=== PATIENT | female | born 1980 | race Hispanic/Latino ===

== ENCOUNTER 2019-02-25 09:24 | Emergency (ER) | payer SELFPAY ==
[~2019-02-25] VITALS: Ht 157.5 cm; Wt 63.6 kg
[2019-02-25] MEDS ORDERED: PREDNISONE50 MG PO (09:44)
[2019-02-25] MEDS ORDERED: EPIPEN 2-P0.3 MG/0.3 IM (09:44)
[2019-02-25 11:13] VITALS: BP 110/56
== END 2019-02-25 11:23 | disposition home or self-care (01) | DRG 916 ==
LOC: ED 09:24
DX: T78.40XA Allergy, unspecified, initial encounter (principal); L29.9 Pruritus, unspecified; R21 Rash and other nonspecific skin eruption; R22.0 Localized swelling, mass and lump, head

== ENCOUNTER 2019-03-06 13:55 | Emergency (ER) | payer SELFPAY ==
[~2019-03-06] VITALS: Ht 157.5 cm; Wt 64.0 kg
[~2019-03-06 13:55] MED LIST: EPIPEN 2-P0.3 MG/0.3 IM; PREDNISONE50 MG PO
[2019-03-06 16:36] VITALS: BP 112/68
[2019-03-06] MEDS ORDERED: EPIPEN 2-P0.3 MG/0.3 IM (16:38)
[2019-03-06] MEDS ORDERED: PREDNISONE50 MG PO (16:38)
[2019-03-06] MEDS ORDERED: BENADRYL 50MG C50 MG PO (16:38)
[2019-03-06] MEDS ORDERED: PEPCID20 MG PO (16:38)
== END 2019-03-06 17:06 | disposition left against medical advice (07) | DRG 916 ==
LOC: ED 13:55
DX: T78.40XA Allergy, unspecified, initial encounter (principal); R22.0 Localized swelling, mass and lump, head; Z91.19 Patient's noncompliance with other medical treatment and regimen